=== PATIENT | male | born 2000 | race Caucasian/White ===

== ENCOUNTER 2018-11-06 19:06 | Emergency (ER) | payer SELFPAY ==
[~2018-11-06] VITALS: Ht 185.4 cm; Wt 76.9 kg
[2018-11-06 19:09] VITALS: BP 138/90
[2018-11-06] MEDS ORDERED: HYDROcodone/APAP 5/325 TABLET ONE (19:27)
[2018-11-06] MEDS ORDERED: HYDROcodone/APAP 5/325 TABLET PO ONE (19:30)
--- NOTE | 2018-11-06 19:54 | NUR ---
DC EDUCATION PROVIDED, PT DEMONSTRATES UNDERSTANDING. PT AMBULATED STEADILY TO DC WITH RN AND FRIEND.
== END 2018-11-06 19:56 | disposition home or self-care (01) ==
LOC: EDBD 19:06 → ED 19:50
DX: K02.9 Dental caries, unspecified (principal); K08.89 Other specified disorders of teeth and supporting structures; F17.200 Nicotine dependence, unspecified, uncomplicated
CPT/HCPCS: 99283

== ENCOUNTER 2018-11-19 17:44 | Emergency (ER) | payer SELFPAY ==
[~2018-11-19] VITALS: Ht 185.4 cm; Wt 76.3 kg
[2018-11-19 17:50] VITALS: BP 133/70
== END 2018-11-19 18:38 | disposition left against medical advice (07) ==
LOC: ED 18:28
DX: K02.9 Dental caries, unspecified (principal)
CPT/HCPCS: 99283

== ENCOUNTER 2018-12-12 18:20 | Emergency (ER) | payer SELFPAY ==
[~2018-12-12] VITALS: Ht 185.4 cm; Wt 76.5 kg
[2018-12-12 19:03] VITALS: BP 138/72
== END 2018-12-12 20:53 | disposition home or self-care (01) ==
LOC: ED 20:47
DX: G89.11 Acute pain due to trauma (principal); M54.5 Low back pain; R30.0 Dysuria; F17.200 Nicotine dependence, unspecified, uncomplicated; Z72.9 Problem related to lifestyle, unspecified; Z91.14 Patient's other noncompliance with medication regimen; Z75.9 Unspecified problem related to medical facilities and other health care; Z76.0 Encounter for issue of repeat prescription; V49.49XA Driver injured in collision with other motor vehicles in traffic accident, initial encounter; Y93.89 Activity, other specified; Y92.89 Other specified places as the place of occurrence of the external cause; Y99.8 Other external cause status
CPT/HCPCS: 72080; 81003; 99284

== ENCOUNTER 2019-02-18 15:48 | Emergency (ER) | payer MEDICAID ==
[~2019-02-18] VITALS: Ht 185.4 cm; Wt 76.0 kg
[2019-02-18 15:53] VITALS: BP 135/76
--- NOTE | 2019-02-18 16:07 | NUR ---
PT HERE FOR DENTAL PAIN- CHRONIC. HAS BEEN SEEN BY DENTIST. NEEDS 5 ROOT CANNALS AND 6 CROWNS. WAS UNABLE TO AFFORD IT. HAS ANOTHER APPT Mar. CHIPPED HIS TOOTH TODAY AND IS HAVING PAIN. CURRENTLY RESTING ON Electronic Brailler. SEEN BY PA. CRUZ.
[2019-02-18] MEDS ORDERED: HYDROcodone/APAP 5/325 TABLET ONE (16:10)
--- NOTE | 2019-02-18 16:11 | NUR ---
PT MEDICATED PER EMAR.
[2019-02-18] MEDS ORDERED: HYDROcodone/APAP 5/325 TABLET PO ONE (16:30)
== END 2019-02-18 16:30 | disposition home or self-care (01) ==
LOC: ED 16:24
DX: K08.89 Other specified disorders of teeth and supporting structures (principal); Z72.9 Problem related to lifestyle, unspecified; F17.210 Nicotine dependence, cigarettes, uncomplicated
CPT/HCPCS: 99283

== ENCOUNTER 2019-03-03 02:19 | Emergency (ER) | payer MEDICAID ==
[~2019-03-03] VITALS: Ht 185.4 cm; Wt 77.9 kg
[2019-03-03 02:23] VITALS: BP 124/76
[2019-03-03] MEDS ORDERED: AMOXICILLIN 500 MG CAPSULE PO STA (02:43)
[2019-03-03] MEDS ORDERED: AMOXICILLIN 500 MG CAPSULE ONE (02:48)
[2019-03-03] MEDS ORDERED: IBUPROFEN 600 MG TABLET ONE (02:48)
[2019-03-03] MEDS: IBUPROFEN 600 MG TABLET PO ONE ×2 (02:50→02:56)
[2019-03-03] MEDS ORDERED: ACETAMINOPHEN 500 MG TABLET PO ONE (03:00)
== END 2019-03-03 03:59 | disposition home or self-care (01) ==
LOC: ED 03:50
DX: K02.9 Dental caries, unspecified (principal); F17.210 Nicotine dependence, cigarettes, uncomplicated
CPT/HCPCS: 99283